=== PATIENT | male | born 1960 | race African-American/Black ===

== ENCOUNTER 2016-03-10 03:42 | Emergency (ER) | payer MEDICAID, OTHER ==
[~2016-03-10] VITALS: Ht 180.3 cm; Wt 113.0 kg
[~2016-03-10 03:42] MED LIST: CYCL-36 PO; MECL25CH PO; NAPR500 PO
[2016-03-10 03:45] VITALS: BP 142/92; PULSE 70; RESP 15; TEMP 98.3; O2SAT 96
[2016-03-10] MEDS ORDERED: AMLO2.5T PO (03:59)
[2016-03-10] MEDS ORDERED: DICL75TA PO (04:04)
[2016-03-10] MEDS ORDERED: ALBU6.7H INH (04:04)
[2016-03-10] MEDS ORDERED: PRED-503 PO (04:04)
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
[2016-03-10] MEDS ORDERED: predniSONE 20 MG TAB PO ONE (04:15)
[2016-03-10] MEDS ORDERED: IBUPROFEN 600 MG TAB PO ONE (04:15)
== END 2016-03-10 04:40 | disposition home or self-care (01) ==
LOC: NEPB 03:42
DX: J06.9 Acute upper respiratory infection, unspecified (principal); R09.1 Pleurisy; I10 Essential (primary) hypertension; E78.00 Pure hypercholesterolemia, unspecified
CPT/HCPCS: 99283; J7512

== ENCOUNTER 2016-04-24 03:31 | Emergency (ER) | payer SELFPAY ==
[~2016-04-24] VITALS: Ht 180.3 cm; Wt 114.0 kg
[~2016-04-24 03:31] MED LIST changes: +ALBU6.7H INH; +AMLO2.5T PO; +DICL75TA PO; -MECL25CH PO; -NAPR500 PO; +PRED-503 PO
[2016-04-24 03:33] VITALS: BP 148/91; PULSE 62; RESP 16; TEMP 97.7; O2SAT 98
[2016-04-24] MEDS ORDERED: ROBA750T PO (04:14)
[2016-04-24] MEDS ORDERED: DICL75TA PO (04:14)
[2016-04-24] MEDS ORDERED: NAPROXEN 500 MG TAB PO ONE (04:15)
[2016-04-24] MEDS ORDERED: METHOCARBAMOL 500 MG TAB PO ONE (04:15)
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
== END 2016-04-24 04:36 | disposition home or self-care (01) ==
LOC: NEPB 03:31
DX: M54.5 Low back pain (principal); M25.532 Pain in left wrist; I10 Essential (primary) hypertension
CPT/HCPCS: 99283

== ENCOUNTER 2016-06-13 17:07 | Emergency (ER) | payer MEDICAID, OTHER ==
[~2016-06-13] VITALS: Ht 180.3 cm; Wt 110.0 kg
[~2016-06-13 17:07] MED LIST changes: -ALBU6.7H INH; -CYCL-36 PO; -PRED-503 PO; +ROBA750T PO
[2016-06-13 17:09] VITALS: BP 166/91; PULSE 78; RESP 15; TEMP 98.2; O2SAT 99
--- NOTE | 2016-06-13 17:13 | PD ---
Physical Exam Time Seen by Provider: 17:10 Narrative 56yo M c/o R sided sinus pressure x4 days. Denies fever. Reports nasal congestion, cough, sore throat. VS reviewed. Patient seen in triage. Awaiting bed placement. Data Data Last Documented VS Vital Signs Date Time Temp Pulse Resp B/P Pulse Ox O2 Delivery O2 Flow Rate FiO2 06/13/16 17:09 98.2 78 15 166/91 99 MDM Supervised Visit with PRINCE: Parul Vieyra June 13, 2016 17:12
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
[2016-06-13] MEDS ORDERED: AUGM875T PO (17:17)
== END 2016-06-13 17:27 | disposition home or self-care (01) ==
LOC: NEPK 17:07
DX: J01.10 Acute frontal sinusitis, unspecified (principal)
CPT/HCPCS: 99283

== ENCOUNTER 2017-02-11 11:58 | Emergency (ER) | payer MEDICAID ==
[~2017-02-11] VITALS: Ht 180.3 cm; Wt 112.0 kg
[~2017-02-11 11:58] MED LIST changes: +AUGM875T PO; -DICL75TA PO; -ROBA750T PO
[2017-02-11 12:00] VITALS: BP 172/96; PULSE 67; RESP 12; TEMP 98.2; O2SAT 96
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
[2017-02-11] MEDS ORDERED: IBUPROFEN 800 MG TAB PO ONE (12:45)
[2017-02-11] MEDS ORDERED: TETANUS/DIPHTHERIA TOXOID ADULT 0.5 ML VIAL IM ONE (12:45)
== END 2017-02-11 13:45 | disposition home or self-care (01) ==
LOC: NEPD 11:58
DX: S00.01XA Abrasion of scalp, initial encounter (principal); I10 Essential (primary) hypertension; E78.00 Pure hypercholesterolemia, unspecified; Z23 Encounter for immunization; W45.8XXA Other foreign body or object entering through skin, initial encounter
CPT/HCPCS: 90471; 90714

== ENCOUNTER 2017-03-05 06:09 | Emergency (ER) | payer MEDICAID ==
[~2017-03-05] VITALS: Ht 180.3 cm; Wt 113.5 kg
[2017-03-05 06:10] VITALS: BP 142/92; PULSE 76; RESP 16; TEMP 98.1; O2SAT 98
--- NOTE | 2017-03-05 06:37 | PD ---
HPI Chief Complaint: Cold / Flu Symptoms Time Seen by Provider: 06:25 Travel History International Travel<30 days: No Contact w/Intl Traveler<30days: No Traveled to known affect area: No History of Present Illness HPI 56-year-old black male presents to emergency department with a three-day history of subjective fever and chills, cough, congestion, runny nose, myalgias , arthralgias and general malaise. He denies any nausea vomiting. No abdominal pain or diarrhea. History Past Medical Histgory Narrative Medical Hypertension Tetanus Vaccination: < 5 Years Hx Cancer: No Social History Alcohol Use: No Tobacco Use: No Allergies-Medications (Allergen,Severity, Reaction): Coded Allergies: No Known Allergies (Verified Adverse Reaction, Unknown, 03/05/17) Reported Meds & Prescriptions Reported Meds & Active Scripts Active Reported Amlodipine (Amlodipine Besylate) 2.5 Mg Tab 2.5 Mg PO DAILY Review of Systems Except as stated in HPI: all other systems reviewed are Neg Physical Exam Narrative GENERAL: Well-developed well-nourished black male no acute distress. SKIN: Focused skin assessment warm/dry. HEAD: Atraumatic. Normocephalic. EYES: Pupils equal and round. No scleral icterus. No injection or drainage. ENT: No nasal bleeding or discharge. Mucous membranes pink and moist. NECK: Trachea midline. No JVD. CARDIOVASCULAR: Regular rate and rhythm. No murmur appreciated. RESPIRATORY: No accessory muscle use. Clear to auscultation. Breath sounds equal bilaterally. GASTROINTESTINAL: Abdomen soft, non-tender, nondistended. Hepatic and splenic margins not palpable. MUSCULOSKELETAL: No obvious deformities. No clubbing. No cyanosis. No edema. NEUROLOGICAL: Awake and alert. No obvious cranial nerve deficits. Motor grossly within normal limits. Normal speech. PSYCHIATRIC: Appropriate mood and affect; insight and judgment normal. Data Data Last Documented VS Vital Signs Date Time Temp Pulse Resp B/P (MAP) Pulse Ox O2 Delivery O2 Flow Rate FiO2 03/05/17 06:25 20 98 Room Air 03/05/17 06:10 98.1 76 142/92 (109) [facility] Medical Screen Exam Complete: Yes Emergency Medical Condition: No Differential Diagnosis MDM: High Differential diagnoses: Pneumonia, bronchitis, URI, asthma, RAD, influenza Narrative Course A medical screening exam was performed: At the time of evaluation the presenting medical condition was determined not to be of an emergent nature. The patient was given the option of receiving additional care, but declined. Patient was given options for additional community resources from which to obtain care. The Patient Has Been advised to seek medical attention for their presenting complaint. The patient has been advised to return to the ER at any time if an emergent condition develops. Primary Impression: Encounter for medical screening examination Condition: Dalton Reyna Mar 05, 2017 06:36
== END 2017-03-05 07:12 | disposition left against medical advice (07) ==
LOC: NEPD 06:09
DX: R05 Cough (principal)
CPT/HCPCS: 99281

== ENCOUNTER 2017-03-11 01:45 | Emergency (ER) | payer MEDICAID ==
[~2017-03-11] VITALS: Ht 180.3 cm; Wt 113.0 kg
[~2017-03-11 01:45] MED LIST changes: -AUGM875T PO
[2017-03-11 01:47] VITALS: BP 143/85; PULSE 86; RESP 16; TEMP 98.2; O2SAT 95
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
== END 2017-03-11 03:07 | disposition left against medical advice (07) ==
LOC: NEPD 01:45
DX: R09.81 Nasal congestion (principal); R05 Cough; R53.81 Other malaise; I10 Essential (primary) hypertension; E78.00 Pure hypercholesterolemia, unspecified
CPT/HCPCS: 99281

== ENCOUNTER 2017-07-27 06:22 | Emergency (ER) | payer MEDICAID ==
[~2017-07-27] VITALS: Ht 180.3 cm; Wt 113.5 kg
[2017-07-27 06:36] VITALS: BP 174/90; PULSE 60; RESP 16; TEMP 97.8; O2SAT 96
[2017-07-27] MEDS ORDERED: KETOROLAC TROMETHAMINE 60 MG/2 ML (IM) VIAL IM ONE (06:45)
[2017-07-27] MEDS ORDERED: ORPHENADRINE INJ 60 MG/2 ML AMP IM ONE (06:45)
[2017-07-27] MEDS ORDERED: NAPR500T2 PO (06:46)
[2017-07-27] MEDS ORDERED: BACL10TA PO (06:46)
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
== END 2017-07-27 07:44 | disposition home or self-care (01) ==
LOC: NEPD 06:22
DX: S46.911A Strain of unspecified muscle, fascia and tendon at shoulder and upper arm level, right arm, initial encounter (principal); I10 Essential (primary) hypertension; Y93.G1 Activity, food preparation and clean up; Y92.511 Restaurant or cafe as the place of occurrence of the external cause; Y99.0 Civilian activity done for income or pay; Z79.899 Other long term (current) drug therapy
CPT/HCPCS: 96372; 99283; J1885; J2360